=== PATIENT | female | born 1990 | race Caucasian/White ===

== ENCOUNTER 2018-11-03 03:44 | Emergency (ER) | payer SELFPAY ==
[2018-11-03 04:19] LABS: Bilirubin Small (Negative); Blood, Urine Small (Negative); Clarity Clear (Clear); Glucose, Urine (Dipstick) Negative (Negative); Leukocyte Negative (Negative); Nitrite Negative (Negative); Protein, Urine (Dipstick) 30 mg/dL (Neg-Trace); Urobilinogen 0.2 mg/dL (0.2-1.0)
[2018-11-03] MEDS ORDERED: Ondansetron PF 4 MG/2 ML Vial ONE (04:20)
[2018-11-03] MEDS ORDERED: Sodium Chloride 0.9% 1,000 ML ONE (04:20)
[2018-11-03 04:21] LABS: #Eosinphils 0.1 thou/uL (0.0-0.7); #Monocytes 0.5 thou/uL (0.11-0.59); #Neutrophils 7.3 thou/uL (1.40-6.50); %Basophils 0.5 % (0.0-1.0); %Lymphocytes 10.8 % (21.0-51.0); %Monocytes 6.1 % (0.0-10.0); %Neutrophils 81.7 % (42.0-75.0); Hemoglobin 15.3 g/dL (12.0-16.0); Mean Corpuscular HGB CONC 33.2 g/dL (32.0-36.0); Mean Corpuscular Hemoglobin 30.6 pg (27.0-31.0); Mean Corpuscular Volume 92.1 fL (78.0-98.0); Mean Platelet Volume 8.5 fL (7.4-10.4); Platelet Count 279 thou/uL (130-400); RBC Distribution Width 11.2 % (11.5-14.5); Red Blood Cell (RBC) Count 5.02 mill/uL (4.20-5.40); White Blood Cell (WBC) Count 8.9 thou/uL (4.8-10.8)
[2018-11-03 04:22] LABS: Pregnancy Test - Urine (BHCG) Negative (Negative); Pregu Control Background? CLEAR/WHITE (CLR/WHITE); Pregu Control Bar Appear? YES (CONTROL BAR); Specific Gravity 1.028 (1.002-1.036)
[2018-11-03 04:23] LABS: Specific Gravity, Urine 1.028 (1.002-1.036)
[2018-11-03 04:25] LABS: Bacteria/HPF None Seen HPF (None Seen); RBC/HPF 0-3 HPF (0-3); WBC/HPF 0-3 HPF (0-3)
[2018-11-03 04:37] LABS: ALT (SGPT) 23 U/L (8-55); AST (SGOT) 31 U/L (5-34); Alkaline Phosphatase 99 U/L (40-150); Anion Gap 16 mmol/L (10-20); BUN (Urea Nitrogen) 13 mg/dL (7.0-18.7); Bilirubin, Total 0.6 mg/dL (0.2-1.2); Calc. Creatinine Clearance 0 mL/min (70-130); Calcium 9.9 mg/dL (7.8-10.44); Carbon Dioxide 20 mmol/L (22-29); Chloride 107 mmol/L (98-107); Estimated GFR-MDRD 82; Globulin 3.7 g/dL (2.4-3.5); Glucose 114 mg/dL (70-105); Potassium 3.8 mmol/L (3.5-5.1); Protein, Total 8.7 g/dL (6.0-8.3); Sodium 139 mmol/L (136-145)
[2018-11-03] MEDS ORDERED: Lorazepam 1 MG TAB ONE (05:34)
== END 2018-11-03 05:40 | disposition home or self-care (01) ==
LOC: MADERS 03:44
DX: R11.2 Nausea with vomiting, unspecified (principal); R19.7 Diarrhea, unspecified; F17.220 Nicotine dependence, chewing tobacco, uncomplicated
CPT/HCPCS: 80053; 81003; 81015; 81025; 85025; 96374; J2405; J7050